=== PATIENT | male | born 1965 | race Two or more races ===

== ENCOUNTER 2021-01-28 04:05 | Emergency (ER) | payer OTHER ==
[~2021-01-28] VITALS: Ht 172.7 cm; Wt 88.5 kg
[2021-01-28] MEDS ORDERED: IBUPROFEN 600 MG TABLET ONE (06:28)
[2021-01-28] MEDS ORDERED: HYDROCODONE/APAP 10/325MG TABLET ONE (06:28)
[2021-01-28] MEDS ORDERED: IBUPROFEN 600 MG TABLET PO ONE (06:30)
[2021-01-28] MEDS ORDERED: HYDROCODONE/APAP 10/325MG TABLET PO ONE (06:30)
[2021-01-28] MEDS ORDERED: IBUP-1957 PO (07:48)
[2021-01-28] MEDS ORDERED: HYDR-3972 PO (07:48)
[2021-01-28 08:21] VITALS: BP 133/82
== END 2021-01-28 08:21 | disposition home or self-care (01) ==
LOC: ER 04:09
DX: S61.411A Laceration without foreign body of right hand, initial encounter (principal); S00.83XA Contusion of other part of head, initial encounter; E11.9 Type 2 diabetes mellitus without complications; Y00.XXXA Assault by blunt object, initial encounter; Y93.89 Activity, other specified; Y92.89 Other specified places as the place of occurrence of the external cause; Y99.8 Other external cause status
CPT/HCPCS: 29125; 70450; 70486; 72125; 73110; 73130; 99284; A6403